=== PATIENT | female | born 1960 | race Caucasian/White ===

== ENCOUNTER → 2021-02-28 11:42 | Outpatient (CLI) | payer OTHER, SELFPAY ==
[2021-02-28 14:00] LABS: COVID19 -Nasal RAPID Negative (Negative)
== END ==
PROVIDERS: PCP Family Medicine; Visit Provider Nurse Practitioner Family
DX: Z20.822 Contact with and (suspected) exposure to COVID-19 (principal)
CPT/HCPCS: 87635